=== PATIENT | female | born 1975 | race Caucasian/White ===

== ENCOUNTER 2022-04-24 15:53 | Emergency (ER) | payer MEDICAID, OTHER ==
[~2022-04-24] VITALS: Ht 167.6 cm; Wt 105.0 kg
[~2022-04-24 15:53] MED LIST: CEPH500T MT
[2022-04-24] MEDS ORDERED: LIDOCAINE 5% PATCH TOP SCH (17:30)
[2022-04-24] MEDS ORDERED: KETOROLAC 60MG/2ML VIAL IM ONE (17:30)
[2022-04-24] MEDS ORDERED: ACETAMINOPHEN 325MG TABLET PO ONE (17:30)
[2022-04-24] MEDS ORDERED: NAPR-681 MT (18:49)
[2022-04-24] MEDS ORDERED: CYCL10TA21 MT (18:49)
[2022-04-24 19:11] VITALS: BP 142/74
== END 2022-04-24 19:13 | disposition home or self-care (01) ==
LOC: ER 15:53
DX: M54.50 Low back pain, unspecified (principal); E11.9 Type 2 diabetes mellitus without complications; I10 Essential (primary) hypertension; Z98.890 Other specified postprocedural states
CPT/HCPCS: 81025; 96372; 99283; J1885

== ENCOUNTER 2024-01-09 16:17 | Emergency (ER) | payer MEDICAID ==
[~2024-01-09] VITALS: Ht 157.5 cm; Wt 90.0 kg
[~2024-01-09 16:17] MED LIST changes: +CYCL10TA21 MT; +NAPR-681 MT
[2024-01-09 16:26] VITALS: O2SAT 99
[2024-01-09] MEDS: IBUPROFEN 600MG TABLET PO ONE (18:48)
[2024-01-09] MEDS ORDERED: NAPR220C61 MT (18:49)
[2024-01-09 19:10] VITALS: BP 148/80; PULSE 85; RESP 16; TEMP 36.94740; O2SAT 99
== END 2024-01-09 19:11 | disposition home or self-care (01) ==
LOC: ER 16:17
DX: R07.89 Other chest pain (principal); G89.11 Acute pain due to trauma; I10 Essential (primary) hypertension; E11.9 Type 2 diabetes mellitus without complications; Z98.890 Other specified postprocedural states; V49.49XA Driver injured in collision with other motor vehicles in traffic accident, initial encounter; Y93.89 Activity, other specified; Y92.89 Other specified places as the place of occurrence of the external cause; Y99.8 Other external cause status
CPT/HCPCS: 71101; 99283